=== PATIENT | female | born 1980 ===

== ENCOUNTER 2018-08-18 14:48 | Emergency (ER) | payer SELFPAY ==
[~2018-08-18] VITALS: Wt 86.4 kg
[2018-08-18 14:54] VITALS: TEMP 98.5
[2018-08-18 15:35] LABS: BASO % 0.4 % (0.0-2.0); EOS # 0.3 (0.0-0.7); EOS % 2.4 % (0-4.0); GRAN # 6.6 (1.4-6.5); GRAN % 64.4 % (42.2-75.2); HEMATOCRIT 38.4 % (37.0-47.0); HEMOGLOBIN 12.8 g/dl (12.5-16.0); LYMPH # 2.7 (1.2-3.4); LYMPH % 26.1 % (20.0-51.0); MEAN CELL VOLUME 88 fl (80.0-100.0); MEAN CORPUSCULAR HEMOGLOBIN 29 pg (27.0-31.0); MEAN CORPUSCULAR HGB CONC 33 g/dl (33.0-37.0); MEAN PLATELET VOLUME 10.1 fl (7.4-10.4); MONO # 0.7 (0.1-0.6); MONO % 6.3 % (1.7-9.3); PLATELET COUNT 358 K/mm3 (130-400); RED BLOOD COUNT 4.35 M/mm3 (4.10-5.30); REDCELL DISTRIBUTION WIDTH-CV 12.4 % (11.5-14.5)
[2018-08-18 15:48] LABS: ALBUMIN 4.3 gm/dL (3.5-5.0); BILIRUBIN,TOTAL 0.2 mg/dL (0.0-1.0); CALCIUM 9.4 mg/dL (8.4-10.2); CREATININE, serum 0.6 mg/dL (0.52-1.25); POTASSIUM 4.2 mmol/L (3.4-5.0); TOTAL PROTEIN 7.8 gm/dL (6.4-8.2)
[2018-08-18 15:52] LABS: COLLECTION METHOD CATHETER
[2018-08-18 16:02] LABS: PH 7 (5-8); URINE APPEARANCE Cloudy; URINE BACTERIA Rare /hpf; URINE BILIRUBIN Negative (NEGATIVE); URINE BLOOD 2+ (NEGATIVE); URINE COLOR Yellow; URINE GLUCOSE Negative (NEGATIVE); URINE KETONE Negative (NEGATIVE); URINE LEUKOCYTE ESTERASE Negative (NEGATIVE); URINE NITRATE Negative (NEGATIVE); URINE PROTEIN(semi-quant) Negative (NEGATIVE); URINE RBC 0-2 /hpf; URINE UROBILINOGEN Negative (NEGATIVE)
[2018-08-18] MEDS ORDERED: ZOFRAN ODT4 MG PO (16:56)
[2018-08-18] MEDS ORDERED: NORCO 325 MG-51 TAB PO (16:56)
[2018-08-18 17:20] VITALS: BP 121/67; PULSE 69
== END 2018-08-18 17:20 | disposition home or self-care (01) ==
LOC: COL.ER 14:48
PROVIDERS: Emergency Medicine
DX: N83.201 Unspecified ovarian cyst, right side (principal)
CPT/HCPCS: J2270; J2405; J7030; Q9967

== ENCOUNTER 2018-09-05 16:05 | Emergency (ER) | payer SELFPAY ==
[~2018-09-05 16:05] MED LIST: NORCO 325 MG-51 TAB PO; ZOFRAN ODT4 MG PO
[2018-09-05 16:15] VITALS: TEMP 98.2
[2018-09-05 17:56] LABS: BASO % 0.4 % (0.0-2.0); EOS # 0.2 (0.0-0.7); EOS % 1.6 % (0-4.0); GRAN # 6.6 (1.4-6.5); GRAN % 60.3 % (42.2-75.2); HEMATOCRIT 37.3 % (37.0-47.0); HEMOGLOBIN 12.6 g/dl (12.5-16.0); LYMPH # 3.2 (1.2-3.4); LYMPH % 29.2 % (20.0-51.0); MEAN CELL VOLUME 88 fl (80.0-100.0); MEAN CORPUSCULAR HEMOGLOBIN 30 pg (27.0-31.0); MEAN CORPUSCULAR HGB CONC 34 g/dl (33.0-37.0); MONO # 0.9 (0.1-0.6); PLATELET COUNT 374 K/mm3 (130-400); RED BLOOD COUNT 4.24 M/mm3 (4.10-5.30); REDCELL DISTRIBUTION WIDTH-CV 12.5 % (11.5-14.5)
[2018-09-05 18:11] LABS: ALBUMIN 4.4 gm/dL (3.5-5.0); BILIRUBIN,TOTAL 0.2 mg/dL (0.0-1.0); C-REACTIVE PROTEIN 1.5 mg/dL (0.0-0.9); CALCIUM 9.6 mg/dL (8.4-10.2); CREATININE, serum 0.64 mg/dL (0.52-1.25); POTASSIUM 4.3 mmol/L (3.4-5.0); TOTAL PROTEIN 7.9 gm/dL (6.4-8.2)
[2018-09-05 20:20] LABS: COLLECTION METHOD CLEAN CATCH
[2018-09-05 20:28] LABS: MUCOUS Present /lpf; PH 8 (5-8); URINE APPEARANCE Clear; URINE BACTERIA Rare /hpf; URINE BILIRUBIN Negative (NEGATIVE); URINE BLOOD 3+ (NEGATIVE); URINE COLOR Straw; URINE GLUCOSE Negative (NEGATIVE); URINE KETONE Negative (NEGATIVE); URINE LEUKOCYTE ESTERASE Negative (NEGATIVE); URINE NITRATE Negative (NEGATIVE); URINE PROTEIN(semi-quant) Negative (NEGATIVE); URINE RBC 0-2 /hpf; URINE UROBILINOGEN Negative (NEGATIVE)
[2018-09-05 21:50] VITALS: BP 113/58; PULSE 76
== END 2018-09-05 21:50 | disposition home or self-care (01) ==
LOC: COL.ER 16:05
PROVIDERS: Physician Assistant
DX: N83.201 Unspecified ovarian cyst, right side (principal); N85.00 Endometrial hyperplasia, unspecified; N93.9 Abnormal uterine and vaginal bleeding, unspecified; Z79.891 Long term (current) use of opiate analgesic
CPT/HCPCS: J1885; J2405; J7030

== ENCOUNTER 2019-09-18 07:42 | Day surgery (SDC) | payer SELFPAY ==
[2019-09-18] VITALS (10 sets, daily range): BP systolic 106–132; BP diastolic 47–66; PULSE 79–110; TEMP 98.1–98.8
[~2019-09-18] VITALS: Ht 162.6 cm; Wt 92.8 kg
--- NOTE | 2019-09-18 13:00 | NUR ---
Patient to room 221 via bed from PACU. Assessment completed. Patient sleepy but arouses to name. O2 at 2L per NC per orders. IV to right hand with LR infusing per procotol. 3 incisions to abdomen CDI. Peripad in place, no vaginal bleeding noted. SCDs on. Recovery VS started. Family at bedside. Call light within reach.
--- NOTE | 2019-09-18 18:00 | NUR ---
Steristrip and telfa dressing applied to center incision site.
[2019-09-19 03:58] VITALS: BP 100/52; PULSE 72; TEMP 98.7
[2019-09-19 08:00] VITALS: BP 90/39; PULSE 76; TEMP 98.1
--- NOTE | 2019-09-19 08:25 | NUR ---
Patient/son of patient states she went to the bathroom and dumped urine and had no abnormalities. Unmeasured urine noted.
--- NOTE | 2019-09-19 09:30 | NUR ---
Patient updated on plan of care and son translating at this time. Patient verbalizes understanding. Patient states she will go home at 8pm.
[2019-09-19] MEDS ORDERED: IBU600 MG PO (09:41)
[2019-09-19] MEDS ORDERED: PERCOCET 325 MG1 TA2 PO (09:41)
--- NOTE | 2019-09-19 12:54 | NUR ---
Compensation And Benefits Administrator offered prayer with patient.
[2019-09-19 13:15] VITALS: BP 94/48; PULSE 75; TEMP 98.2
--- NOTE | 2019-09-19 17:20 | NUR ---
Patient walking the halls with this nurse and tolerates well. Patient given updated plan of care and verbalizes understanding.
[2019-09-19 19:00] VITALS: BP 118/58; PULSE 77; TEMP 98.5
--- NOTE | 2019-09-19 19:30 | NUR ---
1814- Report from ADELIA Hazel. Patient to discharge home at 1999 per request. Discharge instructions and prescription prepared by ADELIA Hazel. 1899- Assessment completed. VSS. Discharge paperwork explained in length to in translated [place]ian to [place]ian and printed for patient to review. Patient and music autographer verbalize understanding of instructions. Discharge paperwork (Colombian version) signed and completed. Explained importance of scheduled follow up appointments with . Questions encouraged and answered. 1929- Patient ambulatory off unit with music autographer and walked to front desk supervisor by AMNA Pavon. 1929-
== END 2019-09-19 19:30 | disposition home or self-care (01) ==
LOC: SDCO 07:42 → OB 13:00 → SDCO 09-19 19:30
DX: N80.0 Endometriosis of uterus (principal); N83.8 Other noninflammatory disorders of ovary, fallopian tube and broad ligament; I10 Essential (primary) hypertension; G43.109 Migraine with aura, not intractable, without status migrainosus; F32.9 Major depressive disorder, single episode, unspecified; D69.3 Immune thrombocytopenic purpura; Z98.51 Tubal ligation status; Z80.49 Family history of malignant neoplasm of other genital organs; Z83.3 Family history of diabetes mellitus; N92.0 Excessive and frequent menstruation with regular cycle; Z85.43 Personal history of malignant neoplasm of ovary; K66.0 Peritoneal adhesions (postprocedural) (postinfection)
CPT/HCPCS: OP; J0690; J1100; J1170; J1885; J2270; J2405; J2704; J2710; J3010; J7120

== ENCOUNTER 2019-10-03 10:18 | Emergency (ER) | payer SELFPAY ==
[~2019-10-03] VITALS: Ht 162.6 cm; Wt 95.2 kg
[~2019-10-03 10:18] MED LIST changes: +IBU600 MG PO; +PERCOCET 325 MG1 TA2 PO
[2019-10-03 10:39] VITALS: TEMP 98.4
[2019-10-03 11:38] LABS: BASO % 0.4 % (0.0-2.0); EOS # 0.3 (0.0-0.7); EOS % 3.5 % (0-4.0); GRAN # 4.4 (1.4-6.5); GRAN % 59.4 % (42.2-75.2); HEMOGLOBIN 10.9 g/dl (12.5-16.0); LYMPH # 2.1 (1.2-3.4); LYMPH % 28.4 % (20.0-51.0); MEAN CELL VOLUME 86 fl (80.0-100.0); MEAN CORPUSCULAR HEMOGLOBIN 27 pg (27.0-31.0); MEAN CORPUSCULAR HGB CONC 32 g/dl (33.0-37.0); MEAN PLATELET VOLUME 9.9 fl (7.4-10.4); MONO # 0.6 (0.1-0.6); MONO % 7.9 % (1.7-9.3); PLATELET COUNT 395 K/mm3 (130-400); REDCELL DISTRIBUTION WIDTH-CV 14.5 % (11.5-14.5)
[2019-10-03 11:40] LABS: HEMATOCRIT 34.2 % (37.0-47.0)
[2019-10-03 11:57] LABS: ALBUMIN 4.4 gm/dL (3.5-5.0); BILIRUBIN,TOTAL 0.3 mg/dL (0.0-1.0); C-REACTIVE PROTEIN 1.5 mg/dL (0.0-0.9); CALCIUM 9.2 mg/dL (8.4-10.2); CREATININE, serum 0.64 (0.52-1.25); POTASSIUM 4.1 mmol/L (3.4-5.0); TOTAL PROTEIN 7.7 gm/dL (6.4-8.2)
[2019-10-03 12:13] LABS: COLLECTION METHOD CLEAN CATCH
[2019-10-03 12:19] LABS: MUCOUS Present /lpf; PH 5 (5-8); URINE APPEARANCE Hazy; URINE BACTERIA Rare /hpf; URINE BILIRUBIN Negative (NEGATIVE); URINE BLOOD Negative (NEGATIVE); URINE COLOR Yellow; URINE GLUCOSE Negative (NEGATIVE); URINE KETONE Negative (NEGATIVE); URINE LEUKOCYTE ESTERASE Trace (NEGATIVE); URINE NITRATE Negative (NEGATIVE); URINE PROTEIN(semi-quant) Negative (NEGATIVE); URINE UROBILINOGEN Negative (NEGATIVE)
[2019-10-03] MEDS ORDERED: NAPROSYN500 MG PO (13:12)
[2019-10-03 13:34] VITALS: BP 135/80; PULSE 84
== END 2019-10-03 13:33 | disposition home or self-care (01) ==
LOC: COL.ER 10:18
PROVIDERS: Physician Assistant
DX: N83.201 Unspecified ovarian cyst, right side (principal); I10 Essential (primary) hypertension; D69.6 Thrombocytopenia, unspecified; Z79.1 Long term (current) use of non-steroidal anti-inflammatories (NSAID); Z90.710 Acquired absence of both cervix and uterus; Z90.721 Acquired absence of ovaries, unilateral
CPT/HCPCS: J1885; J7030; Q9967

== ENCOUNTER → 2019-11-24 | Outpatient (CLI) | payer OTHER ==
[~2019-11-24] MED LIST changes: +NAPROSYN500 MG PO
== END ==
LOC: MC.RAD 13:30
DX: N63.21 Unspecified lump in the left breast, upper outer quadrant (principal)
CPT/HCPCS: G0279

== ENCOUNTER → 2020-05-24 | Outpatient (CLI) | payer OTHER | LOC: MC.RAD 10:02 | DX: N63.21 Unspecified lump in the left breast, upper outer quadrant (principal) ==

== ENCOUNTER → 2020-12-30 | Outpatient (CLI) | payer OTHER | LOC: MC.RAD 11:00 | DX: N60.02 Solitary cyst of left breast (principal) ==

== ENCOUNTER 2021-01-04 14:18 | Emergency (ER) | payer SELFPAY ==
[~2021-01-04] VITALS: Ht 154.9 cm; Wt 100.0 kg
[2021-01-04 14:34] VITALS: TEMP 98
[2021-01-04 15:09] LABS: BASO % 0.4 % (0.0-2.0); EOS # 0.2 (0.0-0.7); EOS % 1.5 % (0-4.0); GRAN # 6.3 (1.4-6.5); GRAN % 59.9 % (42.2-75.2); HEMATOCRIT 38.7 % (37.0-47.0); HEMOGLOBIN 12.8 g/dl (12.5-16.0); LYMPH # 3.1 (1.2-3.4); LYMPH % 29.7 % (20.0-51.0); MEAN CELL VOLUME 88 fl (80.0-100.0); MEAN CORPUSCULAR HEMOGLOBIN 29 pg (27.0-31.0); MEAN CORPUSCULAR HGB CONC 33 g/dl (33.0-37.0); MONO # 0.9 (0.1-0.6); MONO % 8.2 % (1.7-9.3); PLATELET COUNT 371 K/mm3 (130-400); REDCELL DISTRIBUTION WIDTH-CV 12.8 % (11.5-14.5)
[2021-01-04 15:24] LABS: ALANINE AMINOTRANSFERASE 29 U/L (4-34); ALBUMIN 4.6 gm/dL (3.5-5.0); ALKALINE PHOSPHATASE 69 U/L (50-136); ANION GAP 9 mmol/L (7-16); AST,SGOT 29 U/L (15-37); BILIRUBIN,TOTAL 0.1 mg/dL (0.0-1.0); BLOOD UREA NITROGEN 11 mg/dL (7-17); CALCIUM 9.6 mg/dL (8.4-10.2); CARBON DIOXIDE 26 mmol/L (22-30); CHLORIDE 103 mmol/L (98-107); CREATININE, serum 0.66 (0.52-1.25); GLUCOSE 91 mg/dL (74-106); POTASSIUM 4.2 mmol/L (3.4-5.0); SODIUM 138 mmol/L (137-145); TOTAL PROTEIN 8.6 gm/dL (6.4-8.2)
[2021-01-04 15:35] LABS: TROPONIN-I < 0.012 ng/mL (0.000-0.035)
[2021-01-04 16:59] VITALS: BP 113/53; PULSE 73
== END 2021-01-04 17:02 | disposition home or self-care (01) ==
LOC: COL.ER 14:18
PROVIDERS: Physician Assistant
DX: R07.89 Other chest pain (principal)
CPT/HCPCS: J1885; J7030

== ENCOUNTER → 2023-09-23 | Outpatient (CLI) | payer OTHER | LOC: MC.RAD 10:46 | DX: N64.4 Mastodynia (principal); N63.20 Unspecified lump in the left breast, unspecified quadrant ==

== ENCOUNTER 2023-11-10 16:10 | Emergency (ER) | payer OTHER ==
[~2023-11-10] VITALS: Ht 170 cm; Wt 100.0 kg
[2023-11-10 16:17] VITALS: TEMP 98
[2023-11-10] MEDS ORDERED: Morphine 4 MG/ML VIAL IV ONE ×2 (16:45→18:45)
[2023-11-10] MEDS ORDERED: NS 1,000 ML IV ONE (16:45)
[2023-11-10] MEDS ORDERED: Ondansetron 4 MG/2 ML VIAL IV ONE (16:45)
[2023-11-10 16:54] LABS: BASO % 0.3 % (0.0-2.0); EOS # 0.2 K/mm3 (0.0-0.7); EOS % 2.2 % (0.0-4.0); GRAN # 6.4 K/mm3 (1.4-6.5); GRAN % 59.3 % (42.2-75.2); HEMOGLOBIN 11.8 g/dl (12.5-16.0); LYMPH # 3.2 K/mm3 (1.2-3.4); LYMPH % 29.7 % (20.0-51.0); MEAN CELL VOLUME 90 fl (80.0-100.0); MEAN CORPUSCULAR HEMOGLOBIN 30 pg (27-31); MEAN CORPUSCULAR HGB CONC 33 g/dl (33.0-37.0); MEAN PLATELET VOLUME 11.2 fl (7.4-10.4); MONO # 0.9 K/mm3 (0.1-0.6); MONO % 8.2 % (1.7-9.3); PLATELET COUNT 318 K/mm3 (130-400); RED BLOOD COUNT 3.95 M/mm3 (4.10-5.30); REDCELL DISTRIBUTION WIDTH-CV 12.8 % (11.5-14.5)
[2023-11-10 17:09] LABS: ALBUMIN 3.5 gm/dL (3.5-5.0); BILIRUBIN,TOTAL 0.4 mg/dL (0.2-1.2); C-REACTIVE PROTEIN 3.65 mg/dL (0.00-0.50); CALCIUM 9.2 mg/dL (8.4-10.2); CREATININE, serum 0.69 mg/dL (0.57-1.11); POTASSIUM 3.9 mmol/L (3.5-4.5); TOTAL PROTEIN 7.1 gm/dL (6.2-8.1)
[2023-11-10 17:24] LABS: HEMATOCRIT 35.7 % (37.0-47.0)
[2023-11-10 17:48] LABS: COLLECTION METHOD CLEAN CATCH
[2023-11-10 17:59] LABS: URINE COLOR Yellow (YELLOW)
[2023-11-10 18:00] LABS: PH 6.5 (5.0-8.5); URINE APPEARANCE Clear (CLEAR/HAZY); URINE BLOOD TRACE-INTACT (NEGATIVE); URINE GLUCOSE Negative (NEGATIVE); URINE KETONE Negative (NEGATIVE); URINE NITRATE Negative (NEGATIVE); URINE PROTEIN(semi-quant) Negative (NEGATIVE); URINE UROBILINOGEN 0.2 E.U/dL (0.2-1.0)
[2023-11-10] MEDS ORDERED: Iohexol 300 - 100 ML VIAL IV ONE (19:37)
[2023-11-10] MEDS ORDERED: Home HYDROcodone/Acetaminophen 5/325 MG #4 TABS/PACK PO ONE (20:15)
[2023-11-10 20:31] VITALS: BP 108/63; PULSE 67
== END 2023-11-10 20:30 | disposition home or self-care (01) ==
LOC: COL.ER 16:10
PROVIDERS: Nurse Practitioner
DX: R10.84 Generalized abdominal pain (principal); N83.201 Unspecified ovarian cyst, right side; R11.0 Nausea; Z90.710 Acquired absence of both cervix and uterus; Z90.721 Acquired absence of ovaries, unilateral
CPT/HCPCS: J2270; J2405; J7030; Q9967